=== PATIENT | female | born 1995 | race Caucasian/White ===

== ENCOUNTER 2017-04-25 15:08 | Emergency (ER) | payer OTHER ==
[~2017-04-25] VITALS: Ht 162.6 cm; Wt 90.7 kg
[~2017-04-25 15:08] MED LIST: ALBU90OI61 INH; Ativan1 MG PO; BENZ100A PO; CEPH500 PO; CYCL10 PO; ERYT.5TO RIGHTEYE; Esgic Tablet1 EACH PO; GABA100; GABA100 PO; GABA300 PO; MECL12.5 PO; METO10 PO; Maxalt10 MG PO; Norco 5-325 Ta1 EACH PO; OMEP40CA12 PO; ONDA4ODT MM; OXYACE5T; PROC10 PO; PROM25 PO; Pepcid20 MG PO; Percocet 5-3251 EACH PO; Pyridium200 MG PO; Reglan10 MG PO; TENCON 50-3251 EACH PO; TOPI50 PO; Verotin-Gr Cap1 EACH PO; Zofran Odt4 MG SL; [UNRECOGNIZED DRUG - OTHER]; [UNRECOGNIZED DRUG - REMARK]
[2017-04-25] MEDS ORDERED: [UNRECOGNIZED DRUG - REMARK] (16:10)
[2017-04-25] MEDS ORDERED: TOPIRAMATE (16:10)
[2017-08-06] MEDS ORDERED: TOPI25 PO (13:31)
[2017-08-06] MEDS ORDERED: Esgic Tablet1 EACH PO (13:31)
[2017-08-06] MEDS ORDERED: CEPH500 PO (13:50)
== END 2017-04-25 16:55 | disposition home or self-care (01) ==
LOC: ER 15:08
DX: F41.9 Anxiety disorder, unspecified (principal); R00.2 Palpitations; R51 Headache; G43.909 Migraine, unspecified, not intractable, without status migrainosus; F17.210 Nicotine dependence, cigarettes, uncomplicated
CPT/HCPCS: 93005; 93010; 93225; 93226; 96372; 99283; J1885

== ENCOUNTER 2017-07-07 20:04 | Emergency (ER) | payer OTHER ==
[~2017-07-07] VITALS: Ht 162.6 cm; Wt 95.2 kg
[~2017-07-07 20:04] MED LIST changes: +TOPIRAMATE; +[UNRECOGNIZED DRUG - REMARK]
[2017-07-07 20:40] LABS: BASOPHILS ABSOLUTE AUTO 0.02 K/mm3 (0.00-0.23); BASOPHILS PERCENT AUTO 0 % (0-2); EOSINOPHILS ABSOLUTE AUTO 0.45 K/mm3 (0.00-0.68); EOSINOPHILS PERCENT AUTO 4 % (0-6); Hematocrit 42.7 % (33.0-51.0); Hemoglobin 14.2 g/dL (11.5-16.0); IMMATURE GRAN ABSOLUTE AUTO 0.03 K/mm3 (0.00-0.10); IMMATURE GRAN PERCENT AUTO 0 % (0-1); LYMPHOCYTES ABSOLUTE AUTO 2.76 K/mm3 (0.84-5.20); LYMPHOCYTES PERCENT AUTO 26 % (21-46); MONOCYTES ABSOLUTE AUTO 0.57 K/mm3 (0.16-1.47); MONOCYTES PERCENT AUTO 5 % (4-13); Mean Corpuscular HGB 28.7 pg (26.0-34.0); Mean Corpuscular HGB Conc 33.3 g/dL (31.5-36.5); Mean Corpuscular Volume 86 fL (80-100); Mean Platelet Volume 10.6 fL (9.1-12.4); NEUTROPHILS ABSOLUTE AUTO 6.71 K/mm3 (1.96-9.15); NEUTROPHILS PERCENT AUTO 64 % (41-73); Platelet Count 326 K/mm3 (150-400); RDW Coefficient Variation 13.1 % (11.7-14.2); RDW Standard Deviation 40.9 fL (35.1-46.3); Red Blood Cell Count 4.95 M/mm3 (3.80-5.20); White Blood Cell Count 10.54 K/mm3 (4.00-11.30)
[2017-07-07 20:54] LABS: Source, Urine Clean Catch
[2017-07-07 20:59] LABS: Bilirubin, Urine Neg (Neg); Blood, Urine 1+ (Neg); Glucose Qualitative, Urine Neg (Neg); Ketones, Urine 1+ (Neg); Leukocyte Esterase, Urine Neg (Neg); Nitrite, Urine Neg (Neg); Protein, Urine Neg (Neg); Specific Gravity, Urine 1.015 (1.003-1.022); Urobilinogen, Urine NORM (Normal)
[2017-07-07 21:01] LABS: Alanine Aminotransfer (ALT/SGP 29 U/L (12-78); Albumin, Blood 3.8 g/dL (3.4-5.0); Alk Phos 66 U/L (50-136); Anion Gap 9 mmol/L (6-16); Aspartate Aminotrans (AST/SGOT 16 U/L (12-37); Bilirubin, Total 0.3 mg/dL (0.1-1.0); Blood Urea Nitrogen 9 mg/dL (8-24); Bun/Creatinine Ratio 11.4 (12.0-20.0); CO2, Blood 24 mmol/L (21-32); Calcium, Blood 8.9 mg/dL (8.5-10.1); Chloride, Blood 108 mmol/L (98-108); Creatinine, Blood 0.79 mg/dL (0.40-1.00); Globulin, Blood 3.7 g/dL (2.2-4.0); Glomerular Filtration Rate >60 (60-); Glucose, Blood 106 mg/dL (70-99); Potassium, Blood 3.4 mmol/L (3.5-5.5); Sodium, Blood 141 mmol/L (136-145); Total Protein, Blood 7.5 g/dL (6.4-8.2)
[2017-07-07 21:09] LABS: Appearance, Urine Clear (Clear); Color, Urine Yellow (P-Yellow)
[2017-07-07 21:10] LABS: Bacteria Mod /hpf; Red Blood Cells, Urine 0-2 /hpf (0-2); Squamous Epithelial Cells Few /hpf (Few); White Blood Cells, Urine 0-2 /hpf (0-5)
[2017-07-07] MEDS ORDERED: Protonix40 MG PO (22:01)
== END 2017-07-07 22:19 | disposition home or self-care (01) ==
LOC: ER 20:04
PROVIDERS: Emergency Medicine
DX: K21.9 Gastro-esophageal reflux disease without esophagitis (principal); F41.9 Anxiety disorder, unspecified; Z91.040 Latex allergy status; Z91.048 Other nonmedicinal substance allergy status; Z88.1 Allergy status to other antibiotic agents; Z91.02 Food additives allergy status; Z88.8 Allergy status to other drugs, medicaments and biological substances; Z87.891 Personal history of nicotine dependence
CPT/HCPCS: 36415; 80053; 81001; 81025; 83690; 85025; 87086; 93005; 93010; 96374; 99283; J2405

== ENCOUNTER 2017-08-26 19:53 | Emergency (ER) | payer OTHER ==
[~2017-08-26] VITALS: Ht 162.6 cm; Wt 99.8 kg
[~2017-08-26 19:53] MED LIST changes: +Protonix40 MG PO; +TOPI25 PO
[2017-08-26 21:52] LABS: Source, Urine Clean Catch
[2017-08-26 22:01] LABS: Bilirubin, Urine Neg (Neg); Blood, Urine 1+ (Neg); Glucose Qualitative, Urine Neg (Neg); Ketones, Urine Neg (Neg); Leukocyte Esterase, Urine 1+ (Neg); Nitrite, Urine Neg (Neg); Protein, Urine Neg (Neg); Urobilinogen, Urine NORM (Normal)
[2017-08-26 22:02] LABS: Appearance, Urine Clear (Clear); Color, Urine Yellow (P-Yellow)
[2017-08-26 22:22] LABS: Amorphous Light (0-Heavy); Bacteria Few /hpf; Red Blood Cells, Urine 0-2 /hpf (0-2); Squamous Epithelial Cells Few /hpf (Few)
[2017-08-27] MEDS ORDERED: Cipro500 MG PO (01:16)
[2017-08-27] MEDS ORDERED: Motion Sickness25 M1 PO (01:16)
[2017-08-27] MEDS ORDERED: Protonix40 MG PO (01:16)
== END 2017-08-27 01:34 | disposition home or self-care (01) ==
LOC: ER 19:53
PROVIDERS: Emergency Medicine
DX: N12 Tubulo-interstitial nephritis, not specified as acute or chronic (principal); K29.70 Gastritis, unspecified, without bleeding; H81.399 Other peripheral vertigo, unspecified ear; Z91.040 Latex allergy status; Z88.8 Allergy status to other drugs, medicaments and biological substances; Z88.1 Allergy status to other antibiotic agents; Z91.048 Other nonmedicinal substance allergy status; Z91.02 Food additives allergy status; Z79.899 Other long term (current) drug therapy; G43.909 Migraine, unspecified, not intractable, without status migrainosus; F41.9 Anxiety disorder, unspecified
CPT/HCPCS: 81001; 81025; 87086; 99283

== ENCOUNTER 2017-12-14 12:40 | Emergency (ER) | payer OTHER ==
[~2017-12-14] VITALS: Ht 162.6 cm; Wt 90.7 kg
[~2017-12-14 12:40] MED LIST changes: +Cipro500 MG PO; +Motion Sickness25 M1 PO
[2017-12-14] MEDS ORDERED: Cleocin HCl300 MG PO (13:41)
[2017-12-14] MEDS ORDERED: METPRE4DP PO (13:41)
[2017-12-14] MEDS ORDERED: ACETAMINOPHEN500 MG PO (13:46)
== END 2017-12-14 14:15 | disposition home or self-care (01) ==
LOC: ER 12:40
DX: J02.0 Streptococcal pharyngitis (principal); F41.9 Anxiety disorder, unspecified; I48.91 Unspecified atrial fibrillation; K21.9 Gastro-esophageal reflux disease without esophagitis; F17.210 Nicotine dependence, cigarettes, uncomplicated; Z91.040 Latex allergy status; Z91.048 Other nonmedicinal substance allergy status; Z88.0 Allergy status to penicillin; Z88.1 Allergy status to other antibiotic agents; Z91.02 Food additives allergy status; Z88.8 Allergy status to other drugs, medicaments and biological substances
CPT/HCPCS: 96372; 99282; J0696; J0713

== ENCOUNTER → 2018-08-05 | Outpatient (CLI) | payer OTHER ==
[~2018-08-05] MED LIST changes: +ACETAMINOPHEN500 MG PO; +Cleocin HCl300 MG PO; +METPRE4DP PO
== END | disposition home or self-care (01) ==
LOC: LAB SHORT 15:40 → LAB 15:40
PROVIDERS: Obstetrics & Gynecology
DX: Z01.419 Encounter for gynecological examination (general) (routine) without abnormal findings (principal)
CPT/HCPCS: G0123

== ENCOUNTER 2018-11-10 06:12 | Day surgery (SDC) | payer OTHER ==
[~2018-11-10] VITALS: Ht 162.6 cm; Wt 106.3 kg
[~2018-11-10 06:12] MED LIST changes: +ALBU90OI INH; +BUPR150ER PO; +Flovent 44 mc10.6 GM INH; +IBUP800 PO
--- NOTE | 2018-11-10 06:55 | NUR ---
History, Chart, Medications and Allergies reviewed before start of procedure. Lungs clear T/O to Auscultation. Patient confirms NPO status and agrees with scheduled surgery. Pre-Op teaching done. Pt verbalizes understanding. Patient reports completing Chlorhexadine shower X2 prior to admission to hospital.
--- NOTE | 2018-11-10 07:58 | NUR ---
11/10/18 0758 Yessi Stearns NO PREOPERATIVE ANTIBIOTICS ORDERED
--- NOTE | 2018-11-10 10:08 | NUR ---
"DAY SURGERY RN | DISCHARGE VSS. A/O. NAUSEA DECREASING. TOLERATING PO WATER AND CRACKERS. ABLE TO VOID. DISCHARGE INSTRUCTIONS AND RX GIVEN TO PATIENT WITH FAMILY PRESENT. DENIES QUESTIONS. STEADY ON FEET. TAKEN TO FRONT ENTRANCE BY VOLUNTEER IN WHEELCHAIR. SITES REMAIN C/D/I. ALL BELONGINGS RETURNED TO PATIENT."
== END 2018-11-10 22:50 | disposition home or self-care (01) ==
LOC: ORSCMMR 06:12 → ORD 07:30 → ORSCMMR 07:30
PROVIDERS: Obstetrics & Gynecology
PROC: 0U5F4ZZ Destruction of Cul-de-sac, Percutaneous Endoscopic Approach (ICD-10-PCS; principal; 2018-11-10 07:30)
PROC: 0UT74ZZ Resection of Bilateral Fallopian Tubes, Percutaneous Endoscopic Approach (ICD-10-PCS; principal; 2018-11-10 07:30)
PROC: 0UT24ZZ Resection of Bilateral Ovaries, Percutaneous Endoscopic Approach (ICD-10-PCS; principal; 2018-11-10 07:30)
DX: N80.3 Endometriosis of pelvic peritoneum (principal); R10.2 Pelvic and perineal pain; N94.6 Dysmenorrhea, unspecified; K66.0 Peritoneal adhesions (postprocedural) (postinfection); J45.909 Unspecified asthma, uncomplicated; F17.210 Nicotine dependence, cigarettes, uncomplicated; E66.01 Morbid (severe) obesity due to excess calories; Z68.41 Body mass index [BMI] 40.0-44.9, adult; Z79.899 Other long term (current) drug therapy
CPT/HCPCS: 88305; J1100; J1885; J2250; J2405; J2704; J2710; J2765; J3010; J7120

== ENCOUNTER 2022-09-04 20:30 | Emergency (ER) | payer BC, OTHER ==
[~2022-09-04] VITALS: Ht 162.6 cm; Wt 99.8 kg
[2022-09-04 20:54] VITALS: BP 118/80
[2022-09-04 21:20] LABS: Source, Urine Clean Catch
[2022-09-04 21:28] LABS: Appearance, Urine Clear (Clear); Bilirubin, Urine Neg (Neg); Blood, Urine 4+ (Neg); Glucose Qualitative, Urine Neg (Neg); Ketones, Urine Neg (Neg); Leukocyte Esterase, Urine 1+ (Neg); Nitrite, Urine Neg (Neg); Protein, Urine Neg (Neg); Urobilinogen, Urine NORM (Normal)
[2022-09-04 21:34] LABS: BASOPHILS ABSOLUTE AUTO 0.04 K/mm3 (0.00-0.23); BASOPHILS PERCENT AUTO 0 % (0-2); EOSINOPHILS ABSOLUTE AUTO 0.12 K/mm3 (0.00-0.68); EOSINOPHILS PERCENT AUTO 1 % (0-6); Hematocrit 38.5 % (33.0-51.0); Hemoglobin 12.9 g/dL (11.5-16.0); IMMATURE GRAN ABSOLUTE AUTO 0.02 K/mm3 (0.00-0.10); IMMATURE GRAN PERCENT AUTO 0 % (0-1); LYMPHOCYTES ABSOLUTE AUTO 2.86 K/mm3 (0.84-5.20); LYMPHOCYTES PERCENT AUTO 31 % (21-46); MONOCYTES ABSOLUTE AUTO 0.87 K/mm3 (0.16-1.47); MONOCYTES PERCENT AUTO 9 % (4-13); Mean Corpuscular HGB 27.9 pg (26.0-34.0); Mean Corpuscular HGB Conc 33.5 g/dL (31.5-36.5); Mean Corpuscular Volume 83 fL (80-100); Mean Platelet Volume 10.3 fL (9.1-12.4); NEUTROPHILS ABSOLUTE AUTO 5.48 K/mm3 (1.96-9.15); NEUTROPHILS PERCENT AUTO 58 % (41-73); Platelet Count 401 K/mm3 (150-400); RDW Coefficient Variation 12.6 % (11.7-14.2); RDW Standard Deviation 38.3 fL (35.1-46.3); Red Blood Cell Count 4.62 M/mm3 (3.80-5.20); White Blood Cell Count 9.39 K/mm3 (4.00-11.30)
[2022-09-04 21:38] LABS: Color, Urine Pale Yellow (P-Yellow)
[2022-09-04 21:41] LABS: Red Blood Cells, Urine 0-2 /hpf (0-2)
[2022-09-04 21:42] LABS: Bacteria Few /hpf; Squamous Epithelial Cells Few /hpf (Few)
[2022-09-04 21:55] LABS: Albumin, Blood 3.4 g/dL (3.4-5.0); Albumin/Globulin Ratio 0.8 (0.8-1.8); Bilirubin, Total 0.2 mg/dL (0.1-1.0); Bun/Creatinine Ratio 12.6 (12.0-20.0); Calcium, Blood 8.9 mg/dL (8.5-10.1); Creatinine, Blood 0.72 mg/dL (0.40-1.00); Potassium, Blood 3.9 mmol/L (3.5-5.5); Total Protein, Blood 7.4 g/dL (6.4-8.2)
[2022-09-04] MEDS ORDERED: [UNRECOGNIZED DRUG - CODE] PO (22:51)
[2022-09-05] MEDS ORDERED: DICY20 PO (02:00)
[2022-09-05] MEDS ORDERED: ONDA4ODT MM (02:00)
[2022-09-05] MEDS ORDERED: SENNA LAXATIVE8.6 MG PO (02:00)
[2022-09-05 02:41] LABS: Candida species (DNA Probe) Negative (NEGATIVE); G. vaginalis (DNA Probe) Positive (NEGATIVE); T. vaginalis (DNA Probe) Negative (NEGATIVE)
[2022-09-05] MEDS ORDERED: METR500 PO (07:20)
== END 2022-09-05 02:45 | disposition home or self-care (01) ==
LOC: ER 20:30
PROVIDERS: Emergency Medicine; Student in an Organized Health Care Education/Training Program
DX: N93.9 Abnormal uterine and vaginal bleeding, unspecified (principal); R10.10 Upper abdominal pain, unspecified; R10.30 Lower abdominal pain, unspecified; R11.0 Nausea; K59.00 Constipation, unspecified; F17.210 Nicotine dependence, cigarettes, uncomplicated; Z91.040 Latex allergy status; Z91.09 Other allergy status, other than to drugs and biological substances; Z88.0 Allergy status to penicillin; Z88.8 Allergy status to other drugs, medicaments and biological substances; Z79.899 Other long term (current) drug therapy; Z90.710 Acquired absence of both cervix and uterus
CPT/HCPCS: 74177; 80053; 81001; 85025; 86850; 86900; 86901; 87480; 87510; 87660; 96374; 96375; 96376; 99284-25; A9270; J1885; J2270; J2405; J2765; Q9967

== ENCOUNTER → 2022-09-19 | Outpatient (CLI) | payer BC, OTHER ==
[~2022-09-19] MED LIST changes: +DICY20 PO; +METR500 PO; +SENNA LAXATIVE8.6 MG PO; +[UNRECOGNIZED DRUG - CODE] PO
[2022-09-20 07:10] LABS: HIV AB/P24 AG SCREEN Non Reactive (Non Reactive)
[2022-09-20 08:10] LABS: HBSAG SCREEN Negative (Negative); HCV ANTIBODY Non Reactive (Non Reactive)
== END | disposition home or self-care (01) ==
LOC: LAB SHORT 13:41 → LAB 13:41
PROVIDERS: Registered Nurse Community Health
DX: Z11.3 Encounter for screening for infections with a predominantly sexual mode of transmission (principal)
CPT/HCPCS: 86592; 86803; 87340; 87389